=== PATIENT | female | born 1960 | race Caucasian/White ===

== ENCOUNTER 2018-09-08 10:39 | Emergency (ER) | payer BC ==
[2018-09-08] MEDS: HYDROmorphone 1 MG/ML Syringe IVPUSH ONE ×2 (11:29→13:27)
[2018-09-08 12:04] LABS: ANION GAP 15.9 mmol/L (10-20); CHLORIDE,CL 104 mmol/L (98-107); SODIUM,NA 139 mmol/L (136-145)
--- NOTE | 2018-09-08 12:15 | CR ---
[id number] RAD/RAD Femur Right 2V EXAM: RAD Femur Right 2V CLINICAL DATA: TRAUMA COMPARISON: NO PREVIOUS SIMILAR EXAM IS AVAILABLE. FINDINGS: A femoral neck fracture is seen with slight valgus angulation.. IMPRESSION: RIGHT FEMORAL NECK FRACTURE. Layton Ortiz MD 09/08/18 [id number] Thank you for allowing us to participate in the care of your patient.
--- NOTE | 2018-09-08 12:16 | CR ---
[id number] RAD/RAD Pelvis 1-2V Exam: RAD Pelvis 1-2V Clinical Data: TRAUMA COMPARISON: NO PREVIOUS SIMILAR EXAM IS AVAILABLE FINDINGS: A right femoral neck fracture is seen. No other fracture or dislocation is identified. There is slight valgus angulation. IMPRESSION: RIGHT FEMORAL NECK FRACTURE. Layton Ortiz MD 09/08/18 [id number] Thank you for allowing us to participate in the care of your patient.
--- NOTE | 2018-09-08 12:27 | EDM.PDOC ---
ED HPI GENERAL MEDICAL PROBLEM - General Chief Complaint: Lower Extremity Injury/Pain Time Seen by Provider: 09/08/18 10:39 Source of Information: Reports: Patient History Limitations: Reports: No Limitations - History of Present Illness INITIAL COMMENTS - FREE TEXT/NARRATIVE: Pt. presents to ER via EMS. Pt. states that she fell after she stepped on a nail file today. She complains of R hip pain. Denies denies any chest pain, shortness of breath, vertigo or lightheadedness prior to the fall. She has evidence of acute injury to her R elbow but denies any pain in this area. Her only complaint os that of R hip pain. She was unable to bear weight on the extremity and subsequently called 911. Denies any numbness/tingling in the distal portion of the extremity. EMS stated that there was no rotation or foreshortening of the extremity. Pt. initially stated that she had not history of problems with anesthesia or postoperatively, but she told nursing that she "almost bled to " when she had a tonsillectomy as a child. Denies any history of bleeding problems. Coagulation studies are normal. Onset: Today Onset Date: 09/08/18 Location: Reports: Upper Extremity, Right, Lower Extremity, Right Quality: Reports: Ache, Stabbing, Throbbing Severity: Severe Improves with: Reports: Rest Worsens with: Reports: Movement Right Hip Pain Score (Numeric/FACES): 7 - Related Data Allergies Allergy/AdvReac Type Severity Reaction Status Date / Time No Known Allergies Allergy Verified 09/08/18 10:41 Home Meds: Home Meds . [No Known Home Meds] 09/08/18 [History] Past Medical History Psychiatric History: Reports: Anxiety - Past Surgical History HEENT Surgical History: Reports: Adenoidectomy, Tonsillectomy Social & Family History - Tobacco Use Smoking Status *Q: Current Every Day Smoker Years of Tobacco use: 44 Packs/Tins Daily: 0.8 - Recreational Drug Use Recreational Drug Use: Yes Recreational Drug Type: Reports: Marijuana/Hashish Recreational Drug Use Frequency: Daily Review of Systems - Review of Systems Review Of Systems: See Below Constitutional: Reports: No Symptoms Eyes: Reports: No Symptoms Ears: Reports: No Symptoms Nose: Reports: No Symptoms Mouth/Throat: Reports: No Symptoms Respiratory: Reports: No Symptoms Cardiovascular: Reports: No Symptoms GI/Abdominal: Reports: No Symptoms Genitourinary: Reports: No Symptoms Musculoskeletal: Reports: Joint Pain (R hip pain), Other Skin: Reports: No Symptoms Neurological: Reports: No Symptoms Psychiatric: Reports: Anxiety ED EXAM, GENERAL - Physical Exam Exam: See Below Exam Limited By: No Limitations General Appearance: Alert, WD/WN, No Apparent Distress Eye Exam: Bilateral Eye: EOMI, Normal Inspection, PERRL, Other (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) Nose: Normal Inspection, No Blood Throat/Mouth: Normal Inspection, Normal Lips, Normal Teeth, Normal Gums, Normal Oropharynx, Normal Voice, No Airway Compromise Head: Atraumatic, Normocephalic Neck: Normal Inspection, Supple, Non-Tender, Full Range of Motion Respiratory/Chest: No Respiratory Distress, Lungs Clear, Normal Breath Sounds, No Accessory Muscle Use, Chest Non-Tender Cardiovascular: Normal Peripheral Pulses, Regular Rate, Rhythm, No Edema, No JVD , No Murmur Peripheral Pulses: 3+: Dorsalis Pedis (L), Dorsalis Pedis (R), 4+: Radial (R) GI/Abdominal: Soft, Non-Tender, No Organomegaly, No Distention, No Mass (Female) Exam: Deferred Rectal (Female) Exam: Deferred Extremities: Normal Inspection, Limited Range of Motion, Other (severe pain on manipulation of the R hip. No rotation noted. Mild shortening of the extremity noted.) Neurological: Alert, Oriented, CN II-XII Intact, Normal Cognition, Normal Reflexes, No Motor/Sensory Deficits Psychiatric: Normal Affect, Normal Mood Skin Exam: Warm, Dry, Intact, No Rash, Pallor Lymphatic: No Adenopathy Course - Vital Signs Last Recorded V/S: Last Vital Signs Temp 36.6 C 09/08/18 10:39 Pulse 73 09/08/18 10:39 Resp 20 09/08/18 10:39 BP 128/84 09/08/18 10:39 Pulse Ox 100 09/08/18 10:39 - Orders/Labs/Meds Labs: Laboratory Tests 09/08/18 09/08/18 09/08/18 Range/Units 11:40 11:40 11:40 WBC 12.8 H (4.0-10.0) x10^3/uL RBC 4.95 (4.00-5.50) x10^6/uL Hgb 15.0 (12.0-16.0) g/dL Hct 44.3 (33.0-47.0) % MCV 89.5 (78.0-93.0) fL MCH 30.3 (26.0-32.0) pg MCHC 33.9 (32.0-36.0) g/dL RDW Coeff of Nanda 12.7 (10.0-15.0) % Plt Count 257 (130-400) x10^3/uL Neut % (Auto) 80.6 H (50.0-80.0) % Lymph % (Auto) 13.6 L (25.0-50.0) % [place] % (Auto) 5.1 (2.0-11.0) % Eos % (Auto) 0.5 (0.0-4.0) % Baso % (Auto) 0.2 (0.2-1.2) % PT 10.3 (10.0-12.8) SEC INR 0.9 L (2.0-3.5) Sodium 139 (136-145) mmol/L Potassium 3.9 (3.5-5.1) mmol/L Chloride 104 (98-107) mmol/L Carbon Dioxide 23 (21-32) mmol/L Anion Gap 15.9 (10-20) mmol/L BUN 14 (7-18) mg/dL Creatinine 0.7 (0.55-1.02) mg/dL Est Cr Clr Drug Dosing 79.68 mL/min Estimated GFR (MDRD) > 60 Glucose 121 H (74-106) mg/dL Calcium 9.8 (8.5-10.1) mg/dL Corrected Calcium 9.56 (8.5-10.1) mg/dL Total Bilirubin 0.4 (0.2-1.0) mg/dL AST 19 (15-37) U/L ALT 21 (14-59) U/L Alkaline Phosphatase 81 (46-116) U/L Total Protein 8.0 (6.4-8.2) g/dL Albumin 4.3 (3.4-5.0) g/dL Globulin 3.7 Albumin/Globulin Ratio 1.16 Meds: Medications Discontinued Medications Generic Name Dose Route Start Last Admin Trade Name Freq PRN Reason Stop Dose Admin Hydromorphone HCl 1 mg 09/08/18 11:23 09/08/18 11:29 Dilaudid IVPUSH 09/08/18 11:24 1 mg ONETIME ONE Administration Hydromorphone HCl 1 mg 09/08/18 12:53 Dilaudid IVPUSH 09/08/18 12:54 ONETIME ONE Nicotine 7 mg 09/08/18 12:27 Habitrol TRDERM 09/08/18 12:28 ONETIME ONE - Radiology Interpretation Free Text/Narrative:: R femoral neck fracture Departure - Departure Time of Disposition: 13:00 Disposition: DC/Tfer to [facility] 02 Clinical Impression: Fracture of neck of femur, hip - Discharge Information Referrals: Radha Anna, [Primary Care Provider] - Forms: ED Department Discharge, Interfacility Transfer EMTALA - Problem List Review Problem List Initiated/Reviewed/Updated: Yes - Assessment/Plan Plan: Pt. will be transferred to [facility] in [place]. I spoke with Dr. Pace (ortho) as well as Dr. Merrill (hospitalist) who graciously accepts the patient in transfer. She will be transported by ground ambulance. She was given dilaudid 1 mg just prior to departure and received a total of 3 mg of dilaudid during her stay. She is quite anxious; she is very worried any the surgery/transport and is requesting to go outside of a cigarette. She was given a nicoderm patch. She is a code 1.
[2018-09-08] MEDS: Nicotine 7 MG/24 Hr Patch TRDERM ONE (13:03)
== END 2018-09-08 10:43 | disposition short-term general hospital (02) ==
LOC: VM.ED 10:39
DX: S72.001A Fracture of unspecified part of neck of right femur, initial encounter for closed fracture (principal); F17.210 Nicotine dependence, cigarettes, uncomplicated; F41.9 Anxiety disorder, unspecified; W45.0XXA Nail entering through skin, initial encounter
CPT/HCPCS: 36415; 72170; 80053; 85025; 85610; 96374; 99285-25; A9270-GY; J1170